=== PATIENT | female | born 1990 | race Two or more races ===

== ENCOUNTER 2023-08-08 12:45 | Emergency (ER) | payer MEDICAID, OTHER ==
[~2023-08-08] VITALS: Ht 165.1 cm; Wt 68.8 kg
[2023-08-08 15:04] VITALS: BP 118/87; PULSE 105; RESP 16; TEMP 98.3; O2SAT 99
[2023-08-08] MEDS ORDERED: CEPH500C PO (15:11)
[2023-08-08] MEDS ORDERED: BACDST PO (15:11)
[2023-08-08] MEDS ORDERED: IBUP-1456 PO (15:11)
== END 2023-08-08 15:17 | disposition home or self-care (01) ==
LOC: ER 12:45
DX: S30.860A Insect bite (nonvenomous) of lower back and pelvis, initial encounter (principal); W57.XXXA Bitten or stung by nonvenomous insect and other nonvenomous arthropods, initial encounter; Y93.89 Activity, other specified; Y92.89 Other specified places as the place of occurrence of the external cause; Y99.8 Other external cause status